=== PATIENT | male | born 1945 | race Caucasian/White ===

== ENCOUNTER 2018-04-25 00:15 | Observation (INO) | payer OTHER ==
[~2018-04-25] VITALS: Ht 188 cm; Wt 108.9 kg
--- NOTE | 2018-04-25 00:28 | ED GENERAL ADULT ---
History of Present Illness General Chief Complaint: Low Back Pain/Injury Stated Complaint: LOWER BACK PAIN Source: patient Exam Limitations: no limitations Vital Signs & Intake/Output Vital Signs & Intake/Output Vital Signs Date Time Temp Pulse Resp B/P B/P Pulse O2 O2 Flow FiO2 Mean Ox Delivery Rate 04/25 0038 98.3 80 16 109/63 98 Room Air Allergies Coded Allergies: No Known Allergies (04/25/18) Triage Note: PT BIBA FROM HOME FOR LOWER BACK PAIN AFTER BENDING OVER. PT DENIES NUMBNESS TINGLING OR LOSS OF FUNCTION OF LEGS OR BOWELS. Triage Nurses Notes Reviewed? yes Onset: Abrupt Duration: hour(s): Timing: constant HPI: 72-year-old male with a history of hyperlipidemia and GERD presenting with acute onset low back pain approximately 2-3 hours prior to arrival. Patient reports that he bent over and when he stood back up he had sudden onset of lower back pain. Pain is worse with movement and ambulation. Denies numbness or paresthesias to the lower extremities. Denies fevers, IV drug use, saddle anesthesia, urinary/bowel incontinence/retention. Has not tried anything for pain relief prior to arrival. (Nelda Tobias) Past History Travel History Traveled to [place] past 21 day No Medical History Any Pertinent Medical History? see below for history Neurological: NONE EENT: NONE Cardiovascular: hyperlipidemia Respiratory: NONE Gastrointestinal: GERD Hepatic: NONE Renal: NONE Musculoskeletal: NONE Psychiatric: NONE Endocrine: NONE Blood Disorders: NONE Cancer(s): NONE SURVEILLANCE DIRECTOR/Reproductive: NONE History of MRSA: No History of VRE: No History of CDIFF: No Surgical History Surgical History: non-contributory Psychosocial History Who do you live with Spouse Services at Home Nursing, Physical Therapy What is your primary language Lao Tobacco Use: Never used ETOH Use: denies use Illicit Drug Use: denies illicit drug use Family History Hx Contributory? No (Nelda Tobias) Review of Systems Review of Systems Constitutional: Reports: no symptoms. EENTM: Reports: no symptoms. Respiratory: Reports: no symptoms. Cardiovascular: Reports: no symptoms. GI: Reports: no symptoms. Genitourinary: Reports: no symptoms. Musculoskeletal: Reports: see HPI. Skin: Reports: no symptoms. Neurological/Psychological: Reports: no symptoms. Hematologic/Endocrine: Reports: no symptoms. Immunologic/Allergic: Reports: no symptoms. All Other Systems: Reviewed and Negative (Nelda Tobias) Physical Exam Physical Exam General Appearance: well developed/nourished, no apparent distress, alert, awake Head: atraumatic, normal appearance Eyes: Bilateral: normal appearance. Neck: normal inspection, full range of motion, no midline tenderness Respiratory: normal breath sounds, lungs clear Cardiovascular: regular rate/rhythm Gastrointestinal: soft, non-tender Back: normal inspection, no vertebral tenderness, +TTP over bilateral lumbar paraspinal muscles Decrease in spinal ROM Extremities: normal inspection, BLE's are NV intact Neurologic/Psych: awake, alert, oriented x 3, normal mood/affect Skin: intact, normal color, warm/dry Core Measures ACS in differential dx? No CVA/TIA Diagnosis: No Sepsis Present: No Sepsis Focused Exam Completed? No (Nelda Tobias) Progress Differential Diagnoses I considered the following diagnoses in my evaluation of the patient: [MSK strain versus disc herniation, will concern for vertebral fracture versus cauda equina versus epidural abscess] Plan of Care: Orders Procedure Date/time Status Heart Healthy Diet 04/[address] in observation 04/25 337 Active Vital Signs 04/25 337 Active Code Status 04/25 337 Active Saline Lock 04/25 330 Active COMPREHENSIVE METABOLIC PANEL 04/25 330 Active CBC WITHOUT DIFFERENTIAL 04/[address] LUMB SPINE WO IV CONTRAST 04/25 330 Active Patient given Percocet and ibuprofen for pain control. Patient signed out to Dr. Sanchez with lumbar x-ray and reassessment pending. Initial ED EKG: none (Nelda Tobias) Departure Departure Disposition: HOME OR SELF CARE Condition: Stable Clinical Impression Primary Impression: Back pain Referrals: Gómez Avendano MD (PCP/Family) Additional Instructions: Follow-up with your primary care provider for reevaluation. Return to the emergency department for any new or worsening symptoms. Departure Forms: Customer Survey General Discharge Information (Nelda Tobias) Departure Comments 04/25/18 2:47 AM The patient was signed out to me by Guillermina Pérez at 1 AM He is having ongoing severe pain after bending forward to pick something up. He is still in significant pain. X-rays negative for fracture or subluxation. 3:30 am The patient is unable to ambulate due to back spasms. We'll place the patient in inpatient observation for further care. Observation Note Spoke With: Tello Howell MD Physician Advisor Notified: RAKAN SANCHEZ DO Place Patient In: Non-ED OBS Care Area Rationale for Observation: My rational for observation is as follows [the patient has severe intractable back pain requiring injectable narcotics. He is therefore being placed in inpatient observation as he is unable to ambulate]. (Rakan Sanchez DO) Critical Care Note Critical Care Note Critical Care Time: non-applicable (Nelda Tobias)
--- NOTE | 2018-04-25 01:52 | RADIOLOGY REPORT ---
EXAMINATION: XR LUMBOSACRAL SPINE CLINICAL INFORMATION: Pain status post bending over COMPARISON: None TECHNIQUE: 4 views of the lumbosacral spine were obtained. FINDINGS: The vertebral bodies and posterior elements are normal. Vertebral body heights are maintained. Mild disc space narrowing of L4-L5. Endplate osteophytes are present throughout. The sacroiliac joints are intact. The sacrum is intact. The paraspinal soft tissues are normal. The visualized bowel gas pattern is unremarkable. IMPRESSION: No acute osseous abnormality. Mild degenerative changes throughout the lumbar spine.
--- NOTE | 2018-04-25 04:15 | History & Physical ---
Daryn Crawford MD 04/25/18 0414: General Information and HPI MD Statement: I have seen and personally examined NOAH LOUIS and documented this H&P. The patient is a 72 year old M who presented with a patient stated chief complaint of [low back pain]. Source of Information: patient, old records Exam Limitations: no limitations History of Present Illness: The patient is a 72-year-old male with past medical history of osteoarthritis, total left knee replacement, hyperlipidemia, GERD presenting with chief complaint of low back pain. Patient reports that he has had acute new onset low back that started a few hours prior to presenting to the ED and prior to this admission. Patient states that he was bent over this evening attempting to pick something up and when he stood up quickly he started experiencing a nonradiating sharp shooting pain localized to his lower back. Reports that the pain feels like spasms. Rates the pain a 10 out of 10 in severity. States that the pain is aggravated with any movement including walking or standing. States he did not try to take anything to help relieve the pain prior to coming to the ED. Patient denies any urinary or bladder incontinence, saddle anesthesia, numbness/tingling, fever/ chills. In the ED patient received ibuprofen 600 mg 1, Percocet 1 tab, diazepam PAXTON 5 mg, morphine 4 mg. Patient reports that none of these medications has helped improve the pain thus far. Past medical history/past surgical history: As above Family history: Noncontributory Social history: He denies alcohol use, former smoker quit 30 years prior previously's smoked half a pack per day for 40 years, denies any illicit drug use, lives with his , retired, no sick contacts Allergies: Denies any allergies to drugs food or environmental In the ED patient received: Ibuprofen 600 mg 1, Percocet 1 TAB, diazepam 5 mg 1, morphine 4 mg IM 1 Past History Travel History Traveled to [place] past 21 day No Medical History Neurological: NONE EENT: NONE Cardiovascular: hyperlipidemia Respiratory: NONE Gastrointestinal: GERD Hepatic: NONE Renal: NONE Musculoskeletal: NONE Psychiatric: NONE Endocrine: NONE Blood Disorders: NONE Cancer(s): NONE 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 EENTM: Reports: no symptoms. Cardiovascular: Reports: no symptoms. Respiratory: Reports: no symptoms. GI: Reports: no symptoms. Genitourinary: Reports: no symptoms. Musculoskeletal: Reports: back pain. Skin: Reports: no symptoms. Neurological/Psychological: Reports: no symptoms. Hematologic/Endocrine: Reports: no symptoms. Immunologic/Allergic: Reports: no symptoms. Exam & Diagnostic Data Last 24 Hrs of Vital Signs/I&O Vital Signs Date Time Temp Pulse Resp B/P B/P Pulse O2 O2 Flow FiO2 Mean Ox Delivery Rate 04/25 0501 97.8 80 16 122/76 97 Room Air 04/25 0244 97.8 90 16 108/60 99 Room Air 04/25 0038 98.3 80 16 109/63 98 Room Air Intake & Output 04/25 0800 04/25 0000 04/24 1600 Intake Total 0 Output Total Balance 0 Intake, Oral 0 Patient 240 lb Weight Physical Exam General Appearance Alert, Oriented X3, Cooperative, No Acute Distress Skin No Rashes HEENT Atraumatic, PERRLA, EOMI, Mucous Membr. moist/pink Cardiovascular Regular Rate, Normal S1, Normal S2, No Murmurs Lungs Clear to Auscultation, Normal Air Movement Abdomen Normal Bowel Sounds, Soft, No Tenderness, No Hepatospenomegaly Neurological Normal Speech, Normal Tone, Sensation Intact, Cranial Nerves 3-12 NL, strength assessment limited by pain Extremities No Clubbing, No Cyanosis, No Edema, Normal Pulses, No Tenderness/ Swelling Last 24 Hrs of Labs/Felix: Laboratory Tests 04/25/18 0431: Anion Gap 8, Estimated GFR > 60, BUN/Creatinine Ratio 21.3, Glucose 115 H, Calcium 9.3, Total Bilirubin 0.5, AST 21, ALT 29, Alkaline Phosphatase 61, Total Protein 6.8, Albumin 3.8, Globulin 3.0, Albumin/Globulin Ratio 1.3, CBC w Diff NO MAN DIFF REQ, RBC 4.50 L, MCV 89.8, MCH 30.4, MCHC 33.8, RDW 14.1, MPV 8.8, Gran % 72.0, Lymphocytes % 17.1 L, Monocytes % 8.5, Eosinophils % 1.9, Basophils % 0.5, Absolute Granulocytes 5.5, Absolute Lymphocytes 1.3, Absolute Monocytes 0.6, Absolute Eosinophils 0.1, Absolute Basophils 0 Assessment/Plan Assessment: Patient is a 72-year-old male with past medical history of osteoarthritis presenting with acute onset localized back pain which appears to be musculoskeletal in nature. A lumbar spine x-ray shows mild degenerative changes however no acute osseous fracture seen. CT lumbar spine showed bilateral neuroforaminal narrowing of L4-L5. Patient is otherwise stable. Patient will be observed on the general medical floor for management of intractable lower back pain. Patient has received ibuprofen, Tylenol, Percocet, morphine without much relief. However as this appears to be likely related to a muscle sprain/strain he would likely benefit from a muscle relaxant such as cyclobenzaprine. Plan: Observe on [employer] Control pain with cyclobenzaprine, heat therapy, lidocaine patch, Tylenol, Percocet Follow up with neurosurgery outpatient If pain does not improve or worsens may consider further imaging with MRI of the spine PT evaluation tomorrow a.m. after reassessment Continue home medication of statin and PPI for HLD and GERD DVT prophylaxis: Heparin subcutaneous, Alps Code: Full code Diet: Heart healthy diet As Ranked By This Provider Problem List: 1. Back pain Core Measures/Misc (06/01) Acute Coronary Syndrome ACS Diagnosis: No Congestive Heart Failure Congestive Heart Failure Diagnosis No Cerebrovascular Accident CVA/TIA Diagnosis: No VTE (View Protocol) VTE Risk Factors Age>40 No Mechanical VTE Prophylaxis d/t N/A MechProphylax Ordered No VTE Pharm Prophylaxis d/t NA PharmProphylax ordered Sepsis (View protocol) Sepsis Present: No If YES complete Sepsis Event Note If YES complete Sepsis Event Note Tello Howell MD 04/25/18 0637: General Information and HPI MD Statement: I have seen and personally examined MISSYNOAH R and documented this H&P. The patient is a 72 year old M who presented with a patient stated chief complaint of [intractable low back pain]. Source of Information: patient Allergies/Medications Allergies: Coded Allergies: No Known Allergies (04/25/18) Past History Medical History Cardiovascular: hyperlipidemia Gastrointestinal: GERD Past Family/Social History Psychosocial History Smoking Status: Former Smoker ETOH Use: denies use Illicit Drug Use: denies illicit drug use Review of Systems Review of Systems Constitutional: Reports: see HPI. Exam & Diagnostic Data Last 24 Hrs of Vital Signs/I&O Vital Signs Date Time Temp Pulse Resp B/P B/P Pulse O2 O2 Flow FiO2 Mean Ox Delivery Rate 04/25 0501 97.8 80 16 122/76 97 Room Air 04/25 0244 97.8 90 16 108/60 99 Room Air 04/25 0038 98.3 80 16 109/63 98 Room Air Intake & Output 04/25 0800 04/25 0000 04/24 1600 Intake Total 0 Output Total Balance 0 Intake, Oral 0 Patient 240 lb Weight Physical Exam General Appearance Alert, Oriented X3, Cooperative, No Acute Distress Skin No Rashes, No Breakdown HEENT Atraumatic, PERRLA, EOMI, Mucous Membr. moist/pink Neck Supple, No JVD Lymphatic Axillary nl, Cervical nl Cardiovascular Regular Rate, Normal S1, Normal S2, No Murmurs Lungs Clear to Auscultation, Normal Air Movement Abdomen Normal Bowel Sounds, Soft, No Tenderness, No Hepatospenomegaly Neurological Normal Speech Extremities No Clubbing, No Cyanosis, No Edema Last 24 Hrs of Labs/Felix: Laboratory Tests 04/25/18 0431: Anion Gap 8, Estimated GFR > 60, BUN/Creatinine Ratio 21.3, Glucose 115 H, Calcium 9.3, Total Bilirubin 0.5, AST 21, ALT 29, Alkaline Phosphatase 61, Total Protein 6.8, Albumin 3.8, Globulin 3.0, Albumin/Globulin Ratio 1.3, CBC w Diff NO MAN DIFF REQ, RBC 4.50 L, MCV 89.8, MCH 30.4, MCHC 33.8, RDW 14.1, MPV 8.8, Gran % 72.0, Lymphocytes % 17.1 L, Monocytes % 8.5, Eosinophils % 1.9, Basophils % 0.5, Absolute Granulocytes 5.5, Absolute Lymphocytes 1.3, Absolute Monocytes 0.6, Absolute Eosinophils 0.1, Absolute Basophils 0 Core Measures/Misc (06/01) Sepsis (View protocol) If YES complete Sepsis Event Note If YES complete Sepsis Event Note Attending MD Review Statement Attending Statement Attending MD Statement: examined this patient, discuss w/resident/PA/CAREER SERVICES DIRECTOR, agreed w/resident/PA/CAREER SERVICES DIRECTOR, reviewed EMR data (avail), amended to note Attending Assessment/Plan: This patient is a 72-year-old male with significant past medical history for osteoarthritis, total left knee replacement, hyperlipidemia, GERD presenting with chief complaint of low back pain. The patient reports that he has had acute new onset low back that started a few hours prior to presenting to the ED. He bent over this evening attempting to pick something up and when he stood up quickly he started experiencing a nonradiating sharp shooting pain localized to his lower back. Upon evaluation in the emergency department patient was found to have normal vital signs, normal CBC, normal chemistry, x-ray of the spine shows no acute disease, however his CT scan demonstrates bilateral neural foraminal narrowing of the L4-L5 region. In the ED patient received ibuprofen 600 mg 1, Percocet 1 tab, diazepam PAXTON 5 mg, morphine 4 mg. Patient reports that none of these medications has helped improve the pain. The patient will be placed on observation for severe intractable back pain and associated dysfunction. Begin aggressive pain management including muscle relaxants. Once priority and is resolved with likely need outpatient physical therapy and appointment with neurosurgery back (Dr. Trotter). Full code
[2018-04-25 04:55] LABS: ABSOLUTE BASOPHIL COUNT 0 /CUMM (0.0-0.2); ABSOLUTE EOSINOPHIL COUNT 0.1 /CUMM (0.0-0.7); ABSOLUTE GRANULOCYTE CT 5.5 /CUMM (1.4-6.5); ABSOLUTE LYMPH COUNT 1.3 /CUMM (1.2-3.4); ABSOLUTE MONOCYTE COUNT 0.6 /CUMM (0.10-0.60); BASOPHIL % 0.5 % (0.0-2.0); EOSINOPHIL % 1.9 % (0-5); HEMATOCRIT 40.5 % (42-52); MEAN CORPUSCULAR HGB 30.4 PG (27.0-31.0); MEAN CORPUSCULAR HGB CONC 33.8 G/DL (33.0-37.0); MEAN CORPUSCULAR VOLUME 89.8 FL (80.0-94.0); MEAN PLATELET VOLUME 8.8 FL (7.4-10.4); PLATELET COUNT 277 /CUMM (130-400); RBC DISTRIBUTION WIDTH 14.1 % (11.5-14.5); WHITE BLOOD CELL COUNT 7.6 /CUMM (4.8-10.8)
--- NOTE | 2018-04-25 05:42 | CT SCAN REPORT ---
EXAMINATION: CT LUMBAR SPINE WITHOUT CONTRAST CLINICAL INFORMATION: Severe back pain. Unable to walk. COMPARISON: Radiographs from today. CT 05/22/2013. TECHNIQUE: Helical non-contrast CT images were obtained through the lumbar spine and 1.25 and 2.5 mm axial reconstructions were reviewed along with sagittal and coronal MPRs. DLP: 1522 mGy-cm FINDINGS: No acute fracture or subluxation. Vertebral body height and alignment is maintained. Small multilevel endplate osteophytes. Mild multilevel facet arthropathy. Mild disc space narrowing of L4-L5. Vacuum disc phenomenon at L3-L4 and L4-L5. The sacrum is intact. The sacroiliac joints are well aligned with mild degenerative changes. Spinal levels evaluation is limited on CT. There is no bony spinal canal narrowing. Bilateral neuroforaminal narrowing at L4-L5. The visualized lung bases are clear. No acute finding in the visualized abdomen. Scattered vascular calcification. No lymphadenopathy. IMPRESSION: No acute osseous abnormality. Mild multilevel degenerative changes of the lumbar spine. Bilateral neuroforaminal narrowing of L4-L5.
[2018-04-25 06:19] VITALS: BP 120/78
[2018-04-25] MEDS ORDERED: SIMVASTATIN40 M1 PO (09:17)
[2018-04-25] MEDS ORDERED: RABEPRAZOLE SOD20 M1 PO (09:18)
[2018-04-25 15:22] VITALS: BP 122/56
--- NOTE | 2018-04-25 21:51 | PN- Att Addend ---
Attending Addendum Attending Brief Note 72M PMH GERD, arthritis, total left knee replacement presents with acute onset of lower back pain. Bent down to unscrew something, and on rising experienced acute lower back pain, R>L, without radiation. No cauda equina signs, no trauma. Was unable to walk or lay flat last night due to pain but is doing much better today. He has 4/10 pain that does not radiate with no numbness or weakness. Exam is normal. 1. Acute low back pain Plan - Observation in general medicine - Start Naproxen 500mg BID - Continue PPI - Continue Flexeril - If pain continues would give Dexamethasone 4mg IV - Continue home medications - DVT PPx - Anticipated discharge tomorrow
[2018-04-25 22:04] VITALS: BP 118/60
[2018-04-26 07:24] VITALS: BP 104/62
--- NOTE | 2018-04-26 10:45 | Patient Discharge Instructions ---
Discharge Instructions General Discharge Information You were seen/treated for: Intractable back pain You had these procedures: Lumbar Spine CT Watch for these problems: Watch for any worsenin back pain, incontinence, nausea, vomiting, and chest pain. Special Instructions: Please follow up with your PCP in 7 days. Please continue taking all home medications. Diet Continue normal diet: Yes Recommended Diet: Regular Activity Full Activity/No Limits: No Activity Self Limited: Yes Acute Coronary Syndrome Inclusion Criteria At DC or during hospital stay patient has or had the following: ACS DIAGNOSIS No Discharge Core Measures Meds if any: Prescribed or Continued at Discharge Meds if any: NOT Prescribed or Continued at Discharge Congestive Heart Failure Inclusion Criteria At DC or during hospital stay patient has or had the following: CHF DIAGNOSIS No Discharge Core Measures Meds if any: Prescribed or Continued at Discharge Meds if any: NOT Prescribed or Continued at Discharge Cerebrovascular accident Inclusion Criteria At DC or during hospital stay patient has or had the following: CVA/TIA Diagnosis No Discharge Core Measures Meds if any: Prescribed or Continued at Discharge Meds if any: NOT Prescribed or Continued at Discharge Venous thromboembolism Inclusion Criteria VTE Diagnosis No VTE Type NONE VTE Confirmed by (Test) NONE Discharge Core Measures - Per Current guidelines, there needs to be overlap - treatment for the first 5 days of Warfarin therapy. - If discharged on Warfarin prior to 5 days of - overlap therapy, the patient will need to be - assessed for post discharge needs including - *Post discharge parental anticoagulation - *Warfarin and/or parental anticoagulation education - *Follow up date to check INR post discharge At least 5 days overlap therapy as Inpatient No Meds if any: Prescribed or Continued at Discharge Note: Overlap Therapy is Warfarin and Anticoagulant Meds if any: NOT Prescribed or Continued at Discharge
--- NOTE | 2018-04-26 10:46 | Discharge Summary ---
See Addendum Visit Information Visit Dates Admission Date: 04/25/18 Discharge Date: 04/26/18 Hospital Course Course Attending Physician: Tello Howell MD Primary Care Physician: Romana MELGOZA,[facility] Course: 72-year-old male with past medical history of osteoarthritis who presented with acute onset localized back pain which appeared to be musculoskeletal in nature. A lumbar spine x-ray showed mild degenerative changes however no acute osseous fracture seen. CT lumbar spine showed bilateral neuroforaminal narrowing of L4- L5. Patient is otherwise stable. Patient was observed on the general medical floor for management of intractable lower back pain. Patient had received ibuprofen, Tylenol, Percocet, morphine without much relief. However as this appears to be likely related to a muscle sprain/strain he would likely benefit from a muscle relaxant such as cyclobenzaprine. Lumbar Spine X-Ray - No acute osseous abnormality. Mild degenerative changes throughout the lumbar spine. - Patient was placed on observation in general medicine. Initially pain was controlled with cyclobenzaprine, heat therapy, lidocaine patch, Tylenol, Percocet. - On the following day from admission, patient had markedly improved status with no complaints of back pain. Patient likely had initially presented with back spasms and will benefit from a muscle relaxant. - Patient discharged on Cyclobenzaprine to take 4 times daily as needed for muscle spasms and associated back pain. - Patient should follow up with neurosurgery outpatient and if pain does not improve or worsens may consider further imaging with MRI of the spine. - Patient to continue home medication. Allergies: Coded Allergies: No Known Allergies (04/25/18) Significant Procedures: Lumbar Spine CT - No acute osseous abnormality. Mild multilevel degenerative changes of the lumbar spine. Bilateral neuroforaminal narrowing of L4-L5. Disposition Summary Disposition Principal Diagnosis: Back pain, Intractable Additional Diagnosis: Bilateral L4-L5 stenosis Discharge Disposition: home or self care Discharge Instructions General Discharge Information Code Status: Full Code Patient's Diet: regular Patient's Activity: ad tayler Follow-Up Instructions/Appts: Please follow up with PCP in 7 days. Please continue to take all home medications. Medications at Discharge Discharge Medications: Continue taking these medications: Simvastatin (Simvastatin*) 40 MG TABLET 1 Tablet ORAL Every night Qty = 30 Rabeprazole Sodium (Rabeprazole Sodium) 20 MG TABLET.DR 1 Tablet ORAL DAILY Start taking the following new medications: Cyclobenzaprine HCl (Cyclobenzaprine HCl) 10 MG TABLET 1 Tablet ORAL 4 TIMES A DAY as needed for back pain Qty = 12 No Refills Copies To: Romana MELGOZA,[facility]
[2018-04-26] MEDS ORDERED: CYCLOBENZAPRINE10 M1 PO ×3 (10:50→12:13)
--- NOTE | 2018-04-26 11:25 | PN-Observation ---
See Addendum Observation Note Observation Note _ I have personally examined NOAH LOUIS. him disposition is to home today as patient does not complain of any back pain or associated symptoms presently and overnight. Patient is looking forward to being discharged today. Assessment/Plan Medical Assessment: Lumbar Spine X-Ray - No acute osseous abnormality. Mild degenerative changes throughout the lumbar spine. Lumbar Spine CT - No acute osseous abnormality. Mild multilevel degenerative changes of the lumbar spine. Bilateral neuroforaminal narrowing of L4-L5. 72-year-old male with past medical history of osteoarthritis who presented with acute onset localized back pain which appeared to be musculoskeletal in nature. A lumbar spine x-ray showed mild degenerative changes however no acute osseous fracture seen. CT lumbar spine showed bilateral neuroforaminal narrowing of L4- L5. Patient is otherwise stable. Patient was observed on the general medical floor for management of intractable lower back pain. Patient had received ibuprofen, Tylenol, Percocet, morphine without much relief. However as this appears to be likely related to a muscle sprain/strain he would likely benefit from a muscle relaxant such as cyclobenzaprine. Plan: - Patient was placed on observation in general medicine. Initially pain was controlled with cyclobenzaprine, heat therapy, lidocaine patch, Tylenol, Percocet. - Today 04/26 pt. with markedly improved status with no complaints of back pain. Patient likely had initially presented with back spasms and will benefit from a muscle relaxant at home. - Patient discharged on Cyclobenzaprine to take 4 times daily as needed for muscle spasms and associated back pain. - Patient should follow up with neurosurgery outpatient and if pain does not improve or worsens may consider further imaging with MRI of the spine. - Patient to continue home medications upon discharge Problem List: 1. Back pain Plan: Discharge home today Discharge Plan Discharge Disposition: home Subjective Follow-up For: Back pain, Intractable Subjective: Afebrile overnight. No acute events overnight. Patient states his back pain has markedly improved and that his pain is non-existent this morning. Patient does not think he needs the NSAIDs anymore for the pain but will be discharged today with a muscle relaxant to take as needed. Patient otherwise denies any fevers, chills, chest pain, dyspnea, nausea, and vomiting. Review of Systems Constitutional: Reports: see HPI. Objective Last 24 Hrs of Vital Signs/I&O Vital Signs Date Time Temp Pulse Resp B/P B/P Pulse O2 O2 Flow FiO2 Mean Ox Delivery Rate 04/26 724 97.5 63 20 104/62 94 04/25 2204 97.7 68 19 118/60 98 Room Air 04/25 1522 97.6 59 18 122/56 95 Room Air Intake & Output 04/26 1600 04/26 0800 04/26 0000 Intake Total 200 300 Output Total Balance 200 300 Intake, Oral 200 300 Physical Exam General Appearance: Alert, Oriented X3, Cooperative, No Acute Distress Skin: No Rashes, No Breakdown HEENT: Atraumatic Cardiovascular: Regular Rate, Normal S1, Normal S2 Lungs: Clear to Auscultation Abdomen: Soft, No Tenderness Neurological: Normal Gait, Normal Speech Extremities: Normal Pulses
== END 2018-04-26 11:55 ==
LOC: ERH 00:15 → ERHI 03:37 → 2NA 03:37 → ENRESERV 04:38 → 2NA 05:36
PROVIDERS: Emergency Medicine
DX: M54.5 Low back pain (principal); M19.90 Unspecified osteoarthritis, unspecified site; Z96.652 Presence of left artificial knee joint; E78.5 Hyperlipidemia, unspecified; K21.9 Gastro-esophageal reflux disease without esophagitis; Z87.891 Personal history of nicotine dependence; M48.061 Spinal stenosis, lumbar region without neurogenic claudication
CPT/HCPCS: 72110; 96372; 96374; G0378; J0131; J3360